=== PATIENT | female | born 1965 | race Caucasian/White ===

== ENCOUNTER → 2016-10-21 | Outpatient (CLI) | payer BC, SELFPAY ==
[~2016-10-21] MED LIST: CEFZIL DPS250 MG PO; COZAAR DPS50 MG PO; DELTASONE DPS10 MG PO; DUONEB DPS3 ML IH; FLEXERIL DPS5 MG PO; HYDROCHLOROTHIA25 MG PO; LEVOFLOXACIN500 MG PO; LEVOTHYROXINE PO; LOPERAMIDE2 MG PO; LYRICA150 MG PO; LYRICA75 MG PO; MOBIC DPS7.5 MG PO; MOBIC15 MG PO; MUCINEX1200 MG PO; MUCINEX600 MG PO; NORCO 7.5-3251 EACH PO; PREDNISONE PO; PRILOSEC DPS20 MG PO; PROVENTIL HFA6.7 GM IH; SYNTHROID DPS0.2 MG PO; TESSALON PERLE100 M1 PO; TUMS DPS500 MG PO; ZESTORETIC 20/21 TAB PO; ZITHROMAX500 MG PO
== END | disposition home or self-care (01) ==
LOC: RAD.S 12:54
DX: R91.1 Solitary pulmonary nodule (principal)